=== PATIENT | male | born 1985 | race Caucasian/White ===

== ENCOUNTER 2018-05-15 16:12 | Emergency (ER) | payer BC ==
[2018-05-15 16:25] VITALS: BP 126/70
--- NOTE | 2018-05-15 17:18 | RAD ---
Indication: Right ankle injury. 3 views right ankle demonstrates no fracture or dislocation. No other bone or joint abnormality is identified. IMPRESSION: No fracture of the right ankle is noted.
--- NOTE | 2018-05-15 17:18 | RAD ---
Indication: Right knee pain. 4 views of the right knee demonstrates no fracture. Joint spaces all well-preserved. No fracture is identified. IMPRESSION: No fracture of the right knee is noted.
--- NOTE | 2018-05-15 17:56 | UC ---
Lower Extremity/Ankle HPI - HPI Summary HPI Summary: 33-year-old male comes to clinic today with a chief complaint of right leg injury. He slipped and fell on some steps and is right lower leg was folded back as he went down the stairs. This resulted in a hyper plantar flexion of the right ankle and a hyperflexion of the right knee and hip. His ankle is swollen and it is tender circumferentially. The right knee is also swollen and it feels unstable to ambulation. Patient has been able to ambulate if he keeps his leg completely straight but it does have pain with ambulation better with rest. Also has some pain in the proximal quadriceps area. This pain is less than the knee and ankle. Denies other injuries. - History of Current Complaint Chief Complaint: UCLowerExtremity Stated Complaint: KNEE AND ANKLE INJURY Time Seen by Provider: 05/15/18 17:55 Pain Intensity: 9 - Allergies/Home Medications Allergies/Adverse Reactions: Allergies Allergy/AdvReac Type Severity Reaction Status Date / Time levofloxacin [From Levaquin] Allergy Rash Verified 05/15/18 16:25 Home Medications: Home Medications NK [No Home Medications Reported] 05/15/18 [History Confirmed 05/15/18] PMH/Surg Hx/FS Hx/Imm Hx Previously Healthy: Yes - Surgical History Surgical History: None - Social History Alcohol Use: Weekly Substance Use Type: Marijuana Substance Use Comment - Amount & Last Used: weekly Smoking Status (MU): Never Smoked Tobacco Review of Systems Constitutional: Negative Skin: Negative Eyes: Negative ENT: Negative Respiratory: Negative Cardiovascular: Negative Gastrointestinal: Negative Motor: Negative Neurovascular: Negative Musculoskeletal: Other: - see hpi Neurological: Negative Psychological: Negative Is Patient Immunocompromised?: No All Other Systems Reviewed And Are Negative: Yes Physical Exam Triage Information Reviewed: Yes Appearance: Well-Appearing, Well-Nourished, Pain Distress - mild Vital Signs: Initial Vital Signs Temp 98.5 F 05/15/18 16:20 Pulse 81 05/15/18 16:20 Resp 18 05/15/18 16:20 BP 126/70 05/15/18 16:20 Pulse Ox 99 05/15/18 16:20 Vital Signs Reviewed: Yes Eye Exam: Normal Eyes: Positive: Conjunctiva Clear Neck exam: Normal Neck: Positive: Supple Respiratory: Positive: No respiratory distress Musculoskeletal: Positive: Other: - Right hip has good range of motion and full strength. Right knee has an effusion. There is no point tenderness on exam. However with the anterior drawer patient feels the knee moving out of place. The right ankle has circumferential swelling. The Achilles tendon is intact. Normal dorsalis pedis posterior tibial pulses. Capillary refill is normal sensation is normal. Neurological Exam: Normal Neurological: Positive: Alert, Muscle Tone Normal Psychological Exam: Normal Psychological: Positive: Normal Response To Family, Age Appropriate Behavior Skin Exam: Normal Lower Extremity Course/Dx - Course Course Of Treatment: Order Information: KNEE RIGHT 4+ VWS. Accession Number: [id number]. CPT: 83467. Indication: Right knee pain. 4 views of the right knee demonstrates no fracture. Joint spaces all well-preserved. No. fracture is identified. IMPRESSION: No fracture of the right knee is noted. . <Electronically signed by Roya Bee MD in OV> 05/15/181714. Order Information: ANKLE RIGHT 3+VWS. Accession Number: [id number]. CPT: 49428. Indication: Right ankle injury. 3 views right ankle demonstrates no fracture or dislocation. No other bone or joint. abnormality is identified. IMPRESSION: No fracture of the right ankle is noted. . < Electronically signed by Roya Bee MD in OV> 05/15/181714. I discussed the x -ray results with the patient. Because the right knee feels unstable to exam and with attempted ambulation I'm concerned about the possibility of internal derangement. Mike wrap and knee immobilizer was placed by nursing. For the right ankle sprain an Mike wrap and gel splint was placed by nursing. Neurovascularly intact after placement of the Mike wrap since splints. Crutches given in clinic. Plan is to follow up either with his primary care doctor or with orthopedics. - Differential Dx/Diagnosis Provider Diagnoses: RIGHT QUADRICEPS STRAIN. RIGHT KNEE INJURY WITH PROBABLE INTERNAL DERANGEMENT. RIGHT ANKLE SPRAIN Discharge - Sign-Out/Discharge Documenting (check all that apply): Patient Departure All imaging exams completed and their final reports reviewed: Yes - Discharge Plan Condition: Stable Disposition: HOME Patient Education Materials: Knee Sprain (ED), Swollen Knee Joint (ED), Knee Immobilizer (ED), Ankle Sprain (ED) Referrals: Itz Yu MD [Primary Care Provider] - Rocco Yo MD [Medical Doctor] - Additional Instructions: FOLLOW UP WITH ORTHOPEDICS. GET RECHECKED FOR ANY WORSENING OF YOUR CONDITION OR QUESTIONS OR CONCERNS. - Billing Disposition and Condition Condition: STABLE Disposition: Home
[2018-05-15] MEDS ORDERED: Ibuprofen TAB* 600 MG PO ONE (18:15)
== END 2018-05-15 18:50 | disposition home or self-care (01) ==
LOC: UCEAST 16:12
DX: S76.111A Strain of right quadriceps muscle, fascia and tendon, initial encounter (principal); S93.401A Sprain of unspecified ligament of right ankle, initial encounter; W10.9XXA Fall (on) (from) unspecified stairs and steps, initial encounter; Y92.9 Unspecified place or not applicable; Z88.1 Allergy status to other antibiotic agents
CPT/HCPCS: 99204; A9270-GY; G0463

== ENCOUNTER 2018-11-07 17:42 | Emergency (ER) | payer BC, OTHER ==
[2018-11-07 18:23] VITALS: BP 132/84
--- NOTE | 2018-11-07 18:27 | UC ---
Head Injury HPI - HPI Summary HPI Summary: 33 yo male presents with head injury. He tells me that about 1-2 hours [employer] [place] he was installing a metal fence with his girlfriend. A piece of the fence fell backward and hit him on the top of the head. He sustained a small laceration to his scalp. No LOC, but did feel dazed and a little off balance for a few minutes immediately following the impact - those symptoms have since resolved. His last tetanus was within the last 5 years. He denies headache, dizziness, vision changes, n/v. - History Of Current Complaint Chief Complaint: UCLaceration Stated Complaint: HEAD LACERATION Time Seen by Provider: 11/07/18 18:26 Hx Obtained From: Patient Onset/Duration: Sudden Onset Severity Currently: None Severity Initially: Moderate Pain Intensity: 0 Pain Scale Used: 0-10 Numeric - Allergies/Home Medications Allergies/Adverse Reactions: Allergies Allergy/AdvReac Type Severity Reaction Status Date / Time levofloxacin [From Levaquin] Allergy Rash Verified 09/17/18 17:59 Home Medications: Home Medications NK [No Home Medications Reported] 11/07/18 [History Confirmed 11/07/18] PMH/Surg Hx/FS Hx/Imm Hx - Additional Past Medical History Additional PMH: None - Surgical History Surgical History: None Surgery Procedure, Year, and Place: DENIES - Family History Known Family History: Positive: None - Pt denies FMHX, Non-Contributory - Social History Lives: With Family Alcohol Use: Weekly Substance Use Type: Marijuana Substance Use Comment - Amount & Last Used: weekly Smoking Status (MU): Never Smoked Tobacco - Immunization History Most Recent Tetanus Shot: 2017 Review of Systems All Other Systems Reviewed And Are Negative: Yes Constitutional: Positive: Negative Skin: Positive: Other - Scalp laceration Respiratory: Positive: Negative Cardiovascular: Positive: Negative Gastrointestinal: Positive: Negative Neurovascular: Positive: Negative Neurological: Positive: Negative Psychological: Positive: Negative Physical Exam - Summary Physical Exam Summary: GENERAL: NAD. WDWN. No pain distress. SKIN: Parietal scalp with horizontal 1.5cm linear laceration. Clean appearing. HEENT: Head: No raccoon eyes or battles sign. Eyes: PERRLA. EOM intact. Ears: Hearing grossly normal. TMs intact, no bulging, erythema, or edema. No hemotympanum NECK: Supple. Nontender. FROM NEURO: A&Ox3. 3 word recall, remote, recent memory, ability to follow 2-step directions, and attention intact. CN: II: Peripheral stone intact. Vision normal. III, IV, : EOMI. No nystagmus. PERRLA. V: Sensations intact and symmetric. Opens mouth and clenches teeth. VII: No facial asymmetry. Forehead wrinkles. Grins, shuts eyes, frowns, puffs cheeks. VIII: Hearing intact to finger rub. IX, X: Swallows and coughs. Uvula midline. XI: Shrugs shoulders. Turns head against resistance. XII: No tongue deviation [id number] are intact. Gait with normal base. Romberg: maintains balance, no pronator drift. Normal speech. No facial drooping. PSYCH: Age appropriate behavior. Triage Information Reviewed: Yes Vital Signs: Initial Vital Signs Temp 98.8 F 11/07/18 18:19 Pulse 71 11/07/18 18:19 Resp 18 11/07/18 18:19 BP 132/84 11/07/18 18:19 Pulse Ox 97 11/07/18 18:19 Vital Signs Reviewed: Yes Head Injury Course/Dx - Course Course Of Treatment: The procedure was explained to the pt and all questions were answered. A time out was performed, witnessed, and signed. The area was cleansed with NS. TWO mark were administered to bring the wound into approximation. Pt tolerated well. No CT at this time as pt is currently asymptomatic and neuro exam is WNL. - Differential Dx/Diagnosis Provider Diagnosis: Head injury, Scalp laceration Discharge - Sign-Out/Discharge Documenting (check all that apply): Patient Departure All imaging exams completed and their final reports reviewed: No Studies - Discharge Plan Condition: Stable Disposition: HOME Patient Education Materials: St[employer] (ED) Referrals: Itz Yu MD [Primary Care Provider] - Additional Instructions: If you develop a fever, vision changes, severe headache, vomiting, shortness of breath, chest pain, new or worsening symptoms - please call your PCP or go to the ED. Please return in 7-10 days to have your mark removed - Billing Disposition and Condition Condition: STABLE Disposition: Home - Attestation Statements Provider Attestation: Pt not examined by me. I was available for consult. Laceration Repair - Laceration Repair 1 Description: Linear Laceration Size After Repair: Length (cm) - 1.5 Modified For Repair: No Cleansing Completed Via Routine Prep: Yes Closure Material: [place] - #2
== END 2018-11-07 18:42 | disposition home or self-care (01) ==
LOC: UCEAST 17:42
DX: S09.90XA Unspecified injury of head, initial encounter (principal); S01.01XA Laceration without foreign body of scalp, initial encounter; W26.8XXA Contact with other sharp object(s), not elsewhere classified, initial encounter; Y92.096 Garden or yard of other non-institutional residence as the place of occurrence of the external cause; Z88.1 Allergy status to other antibiotic agents
CPT/HCPCS: 12001; 99201; G0463

== ENCOUNTER 2018-11-15 07:50 | Emergency (ER) | payer BC ==
[2018-11-15 07:59] VITALS: BP 135/74
--- NOTE | 2018-11-15 08:32 | UC ---
HPI Wound/Suture Re-check - HPI Summary HPI Summary: PATIENT SUSTAINED A LACERATION TO HIS SCALP ON 11/07/18. CAME HERE TO AND HAD 2 MARK PLACED. WOUND IS HEALING WELL. IS HERE FOR STAPLE REMOVAL. - History Of Current Complaint Chief Complaint: UCLaceration Stated Complaint: STAPLE REMOVAL Time Seen by Provider: 11/15/18 08:18 Hx Obtained From: Patient Severity: Mild Pain Intensity: 0 Pain Scale Used: 0-10 Numeric - Allergies/Home Medications Allergies/Adverse Reactions: Allergies Allergy/AdvReac Type Severity Reaction Status Date / Time levofloxacin [From Levaquin] Allergy Rash Verified 11/15/18 07:58 PMH/Surg Hx/FS Hx/Imm Hx Previously Healthy: Yes - Surgical History Surgical History: None Surgery Procedure, Year, and Place: DENIES - Family History Known Family History: Positive: Non-Contributory - Social History Alcohol Use: Weekly Substance Use Type: Marijuana Substance Use Comment - Amount & Last Used: weekly Smoking Status (MU): Never Smoked Tobacco - Immunization History Most Recent Tetanus Shot: 2017 Review of Systems All Other Systems Reviewed And Are Negative: Yes Constitutional: Positive: Negative Skin: Positive: Other - SCALP LACERATION WELL HEALED Respiratory: Positive: Negative Cardiovascular: Positive: Negative Gastrointestinal: Positive: Negative Physical Exam Triage Information Reviewed: Yes Appearance: Well-Appearing, No Pain Distress, Well-Nourished Vital Signs: Initial Vital Signs Temp 97.3 F 11/15/18 07:55 Pulse 56 11/15/18 07:55 Resp 18 11/15/18 07:55 BP 135/74 11/15/18 07:55 Pulse Ox 99 11/15/18 07:55 Vital Signs Reviewed: Yes Eyes: Positive: Conjunctiva Clear ENT: Positive: Hearing grossly normal Neck: Positive: Supple Respiratory: Positive: No respiratory distress, No accessory muscle use Cardiovascular: Positive: Pulses Normal Abdomen Description: Positive: Soft Musculoskeletal: Positive: No Edema Neurological: Positive: Alert Psychological: Positive: Age Appropriate Behavior Skin: Positive: Other - SCALP LACERATION C/D/I. SLIGHT CRUST SURROUNDING MARK. NO ERYTHEMA, TENDERNESS OR DRAINAGE Course/Dx - Course Course Of Treatment: 2 STAPLE REMOVED BY MD WITHOUT DIFFICULTY. - Diagnosis Provider Diagnosis: Removal of mark Discharge - Sign-Out/Discharge Documenting (check all that apply): Patient Departure All imaging exams completed and their final reports reviewed: No Studies - Discharge Plan Condition: Stable Disposition: HOME Referrals: Itz Yu MD [Primary Care Provider] - If Needed Additional Instructions: YOUR 2 MARK WERE REMOVED TODAY WITHOUT DIFFICULTY. THE CRUST WILL FLAKE OFF WITHIN A FEW DAYS. DO NOT PICK OR SCRATCH AT IT. SEEK FOLLOW-UP IF YOU DEVELOP SPREADING REDNESS OF THE SKIN, PURULENT DRAINAGE, FEVER, INCREASED PAIN OR ANY OTHER CONCERNING SYMPTOMS. - Billing Disposition and Condition Condition: STABLE Disposition: Home
== END 2018-11-15 08:32 | disposition home or self-care (01) ==
LOC: UCEAST 07:50
DX: S01.01XD Laceration without foreign body of scalp, subsequent encounter (principal); W45.8XXD Other foreign body or object entering through skin, subsequent encounter; Z88.1 Allergy status to other antibiotic agents

== ENCOUNTER 2019-01-10 22:02 | Observation (INO) | payer BC ==
--- NOTE | 2019-01-10 23:09 | ED ---
Neurological HPI - HPI Summary HPI Summary: At 19:30 this evening patient had a 90 sec episode of left sided weakness and difficulty with speech--symptoms have resolved all except numbness above left lip - History of Current Complaint Chief Complaint: EDNeurologicalDeficit Stated Complaint: "BELIEVE HAVING SOME KIND OF STOKE EVENT" PER PT Time Seen by Provider: 01/10/19 23:09 Last Known Well Date: 1927 Hx Obtained From: Patient Onset/Duration: Sudden Onset, Started hours ago - 4, Resolved Onset Severity: Moderate Current Severity: Mild Neurological Deficit Location: Facial Headache Location: Frontal Pain Intensity: 2 Pain Scale Used: 0-10 Numeric Character: Weak Associated Signs and Symptoms: Positive: Headache, Confusion, Numbness TPA Considered: No - Allergy/Home Medications Allergies/Adverse Reactions: Allergies Allergy/AdvReac Type Severity Reaction Status Date / Time levofloxacin [From Levaquin] Allergy Rash Verified 01/10/19 22:32 PMH/Surg Hx/FS Hx/Imm Hx Previously Healthy: Yes Endocrine/Hematology History: Denies: Hx Diabetes, Hx Thyroid Disease Cardiovascular History: Denies: Hx Hypertension, Hx Pacemaker/ICD Respiratory History: Denies: Hx Asthma, Hx Chronic Obstructive Pulmonary Disease (COPD) GI History: Denies: Hx Ulcer History: Denies: Hx Renal Disease Sensory History: Denies: Hx Hearing Aid Psychiatric History: Denies: Hx Panic Disorder - Surgical History Surgical History: None Surgery Procedure, Year, and Place: DENIES - Immunization History Hx Pertussis Vaccination: No Immunizations Up to Date: No Infectious Disease History: No Infectious Disease History: Denies: Hx Hepatitis, Hx Human Immunodeficiency Virus (HIV), Traveled Outside the [place] in Last 30 Days - Family History Known Family History: Positive: None - Social History Occupation: Employed Full-time Lives: With Family Alcohol Use: Weekly Hx Substance Use: Yes Substance Use Type: Reports: Marijuana Substance Use Comment - Amount & Last Used: daily Smoking Status (MU): Never Smoked Tobacco Review of Systems Constitutional: Negative Eyes: Negative ENT: Negative Cardiovascular: Negative Respiratory: Negative Gastrointestinal: Negative Genitourinary: Negative Musculoskeletal: Negative Skin: Negative Positive: Headache Psychological: Normal All Other Systems Reviewed And Are Negative: No Physical Exam Triage Information Reviewed: Yes Vital Signs On Initial Exam: Initial Vitals Temp Pulse Resp BP Pulse Ox 98.3 F 78 16 124/94 96 01/10/19 22:08 01/10/19 22:08 01/10/19 22:08 01/10/19 22:08 01/10/19 22:08 Vital Signs Reviewed: No Appearance: Positive: Well-Appearing, No Pain Distress, Well-Nourished Skin: Positive: Warm, Skin Color Reflects Adequate Perfusion, Dry Head/Face: Positive: Normal Head/Face Inspection, Other - numbness above left side of lip. Negative: TMJ Tenderness Eyes: Positive: Normal, EOMI, TRICIA, Conjunctiva Clear ENT: Positive: Normal ENT inspection, Hearing grossly normal, Pharynx normal, TMs normal, Uvula midline, Other - tongue midline-. Negative: Nasal congestion , Trismus, Muffled voice, Hoarse voice Neck: Positive: Supple, Nontender, No Lymphadenopathy, Other: - -bruits Respiratory/Lung Sounds: Positive: Clear to Auscultation, Breath Sounds Present Cardiovascular: Positive: Normal, RRR, Pulses are Symmetrical in both Upper and Lower Extremities Abdomen Description: Positive: Nontender, No Organomegaly, Soft. Negative: CVA Tenderness (R), CVA Tenderness (L) Bowel Sounds: Positive: Present Musculoskeletal: Positive: Normal, Strength/ROM Intact Neurological: Positive: Normal, Sensory/Motor Intact, Alert, Oriented to Person Place, Time, CN Intact II-III, Facial Symmetry, Speech Normal. Negative: Receptive Aphasia, Expressive Aphasia, Cerebellar Dysfunction, Disoriented, Facial Droop, Focal Deficit @, Slurred Speech, Dysphagia, Pronator Drift Present Psychiatric: Positive: Normal AVPU Assessment: Alert - Hubert Coma Scale Best Eye Response: 4 - Spontaneous Best Motor Response: 6 - Obeys Commands Best Verbal Response: 5 - Oriented Coma Scale Total: 15 Diagnostics - Vital Signs Vital Signs Temp Pulse Resp BP Pulse Ox 01/10/19 22:08 98.3 F 78 16 124/94 96 - Laboratory Result Diagrams: 01/10/19 23:36 01/10/19 23:36 Lab Statement: Any lab studies that have been ordered have been reviewed, and results considered in the medical decision making process. - Radiology No standard instances Radiology Interpretation Completed By: Radiologist - ct-brain no acute process identified - EKG No standard instances Cardiac Rate: NL EKG Rhythm: Sinus Rhythm ST Segment: Normal Ectopy: None EKG Comparison: No Significant Change NIH Scale - NIH Scale Level of Consciousness: Alert/Keenly Responsive Ask Patient the Month and His/Her Age: Both Correct Ask Pt to Open/Close Eyes and Monotype Machinist/Release Non-Paretic Hand: Both Correctly Best Gaze (Only Horizontal Eye Movement): Normal Visual Field Testing: No Visual Loss Facial Paresis-Pt to Smile & Close Eyes or Grimace Symmetry: Normal/Symmetrical Motor Function - Right Arm: No Drift-Holds 10 Seconds Motor Function - Left Arm: No Drift-Holds 10 Seconds Motor Function - Right Leg: No Drift-Holds 10 Seconds Motor Function - Left Leg: No Drift-Holds 10 Seconds Limb Ataxia-Must be out of Proportion to Weakness Present: Absent Sensory (Use Pinprick to Test Arms/Legs/Trunk/Face): Normal Best Language (Describe Picture, Name Items): No Aphasia Extinction and Inattention: No Abnormality Re-Evaluation - Re-Evaluation First Eval Change: Improved - reports sx are resolved---aspirin given----report to Dr. Pinedo Course/Dx - Course Assessment/Plan: plan to consult hospitalist for TIA evaluation---patient made aware of plan - Diagnoses Provider Diagnoses: TIA (transient ischemic attack) Discharge - Sign-Out/Discharge Documenting (check all that apply): Patient Departure Patient Received Moderate/Deep Sedation with Procedure: No - Discharge Plan Condition: Fair Disposition: ADMITTED TO [facility] - Billing Disposition and Condition Condition: FAIR Disposition: Admitted to [facility] - Attestation Statements Provider Attestation: the patient was seen by the midlevel provider, it was determined by them that it was not necessary for me to see the patient thus the patient was not presented to me, I was available for consult during the patient's visit in the ED. I did not establish and patient-physician relationship. The chart however has been reviewed and I am signing in an administrative capacity.
[2019-01-10 23:40] LABS: Urine Appearance Cloudy; Urine Bilirubin Negative (Negative); Urine Blood Negative (Negative); Urine Color Yellow; Urine Glucose Negative (Negative); Urine Ketones Negative (Negative); Urine Nitrite Negative (Negative); Urine Protein Negative (Negative); Urine Specific Gravity 1.021 (1.010-1.030); Urine Urobilinogen Negative (Negative)
[2019-01-10 23:45] LABS: ABS Eosinophils 0.1 10^3/ul (0-0.6); ABS Lymphocytes 1.4 10^3/ul (1.0-4.8); ABS Monocytes 0.4 10^3/ul (0-0.8); ABS Neutrophils 4.2 10^3/ul (1.5-7.7); Eosinophil % 0.9 %; Hematocrit 44 % (42-52); Hemoglobin 15.5 g/dL (14.0-18.0); Lymphocyte % 23.2 %; Mean Corpuscular HGB Conc 35 g/dL (31-36); Mean Corpuscular Hemoglobin 29 pg (27-31); Mean Corpuscular Volume 84 fL (80-94); Mean Platelet Volume 8.3 fL (7.4-10.4); Platelet Count 215 10^3/uL (150-450); Red Cell Distribution Width 13 % (10-15); White Blood Count 6.1 10^3/uL (3.5-10.8)
[2019-01-10 23:48] LABS: INR 0.98 (0.82-1.09)
[2019-01-11 00:02] LABS: ALT 17 U/L (7-52); AST 17 U/L (13-39); Albumin 4.6 g/dL (3.2-5.2); Albumin/Globulin Ratio 2.1 (1-3); Alkaline Phosphatase 65 U/L (34-104); Anion Gap 5 mmol/L (2-11); BUN/Creatinine Ratio 19.8 (8-20); Blood Urea Nitrogen 20 mg/dL (6-24); CO2 Carbon Dioxide 27 mmol/L (22-32); Calcium 9.3 mg/dL (8.6-10.3); Chloride 108 mmol/L (101-111); EGFR African American 104.3 (>60); EGFR Non-African American 86.2 (>60); Globulin 2.2 g/dL (2-4); Glucose 100 mg/dL (70-100); Potassium 4.1 mmol/L (3.5-5.0); Sodium 140 mmol/L (135-145); Total Protein 6.8 g/dL (6.4-8.9)
[2019-01-11 00:08] LABS: Urine Benzodiazepine Screen None Detected (None Detect); Urine Opiates Screen None Detected (None Detect)
[2019-01-11 00:14] LABS: Alcohol < 10 mg/dL (<10)
[2019-01-11] MEDS ORDERED: Aspirin 81 mg CHEW TAB* 81 MG TAB.CHEW PO ONE (00:24)
--- NOTE | 2019-01-11 01:44 | HP ---
History of Present Illness - History of Present Illness Reason for Visit: numbness History of Present Illness: PCP: Aimee Patient is a 33 year old man with no significant past medical history who was a passenger in a car this afternoon when he had sudden onset of numbness in his left perioral area, left periorbital area, and left arm and leg. He also describes an inability to speak for 60 seconds. He states he could not control his mouth, but he did not try to speak. He does not describe word-finding difficulty, but he did not make any utterance so he cannot describe dysarthria either. His was driving and she did not note anything wrong. He had no facial asymmetry or weakness. The numbness and speech difficulty resolved in about 60 seconds, except for some left upper lip numbness that persisted for 2- 3 hours. He has had no similar issues in the past. He had a headache develop about 2 hours after the incident, bifrontal, mild. He denies history of migraines. - Past Surgical History Past Surgical History: None - Past Family History Family History: Cancer - father of leiomyosarcoma, mother alive with breast cancer, brother and sister OK - Past Social History Smoke: No Occupation: [employer] Alcohol: Occassional - 0-1/day Drugs: Marijuana - daily Lives: With Family, Other - , no children Review of Systems - Measurements Intake and Output: Intake and Output Last 24 Hours 01/08/19 01/09/19 01/10/19 01/11/19 06:59 06:59 06:59 06:59 Weight 99.79 kg - Review of Systems Constitutional Symptoms: Negative: Weakness Dermatology: Positive: Normal HEENT: Positive: Normal Eyes: Positive: Normal Thyroid: Positive: Normal Pulmonary: Positive: Normal Cardiology: Positive: Normal Negative: Palpitations Gastroenterology: Positive: Normal Genital - Urinary: Positive: Normal Endocrinology: Positive: Normal Hematologic/Lymphatic: Negative: Anemia Neurology: Positive: Headache, Change in Speech, Numbness\Paresthesiae Negative: Migraines, Change in Vision, Diplopia, Change in Balancing, Unexplained Weakness, Hx of Stroke\TIA, Hx of Seizures Psychiatry: Positive: Normal Objective Active Medications: Home Medications: None Vital Signs - 8 hr 01/10/19 01/10/19 01/10/19 22:08 22:19 22:20 Temperature 36.8 C Pulse Rate 78 69 78 Respiratory 16 9 11 Rate Blood Pressure 124/94 148/90 (mmHg) O2 Sat by Pulse 96 98 98 Oximetry 01/11/19 01/11/19 01/11/19 00:49 01:00 01:24 Temperature 36.4 C Pulse Rate 56 53 60 Respiratory 13 18 16 Rate Blood Pressure 117/64 125/82 (mmHg) O2 Sat by Pulse 98 96 97 Oximetry Oxygen Devices in Use Now: None Appearance: alert, no distress Eyes: No Scleral Icterus Ears/Nose/Mouth/Throat: NL Teeth, Lips, Gums, Clear Oropharnyx Neck: NL Appearance and Movements; NL JVP, Trachea Midline Respiratory: Symmetrical Chest Expansion and Respiratory Effort, Clear to Auscultation Cardiovascular: NL Sounds; No Murmurs; No JVD, RRR Abdominal: NL Sounds; No Tenderness; No Distention, No Hepatosplenomegaly Lymphatic: No Cervical Adenopathy, No Axillary Adenopathy Extremities: No Edema Skin: No Rash or Ulcers Neurological: Alert and Oriented x 3, NL Sensation, NL Gait, NL Muscle Strength and Tone, - - CN II-XII intact Lines/Tubes/Other Access: Clean, Dry and Intact Peripheral IV Nutrition: Taking PO's Result Diagrams: 01/10/19 23:36 01/10/19 23:36 Additional Lab and Data: Laboratory Tests 01/10/19 01/10/19 01/10/19 23:30 23:36 23:36 INR (Anticoag Therapy) 0.98 Glucose 100 Lactic Acid AST 17 ALT 17 Troponin I 0.00 Total Protein 6.8 Urine Opiates Screen None detected Ur Amphetamines Screen None detected U Benzodiazepines Scrn None detected Urine Cocaine Screen None detected U Cannabinoids Screen Presumptive positive A Serum Alcohol < 10 01/10/19 23:36 INR (Anticoag Therapy) Glucose Lactic Acid 0.5 AST ALT Troponin I Total Protein Urine Opiates Screen Ur Amphetamines Screen U Benzodiazepines Scrn Urine Cocaine Screen U Cannabinoids Screen Serum Alcohol Diagnostic Imaging: Head CT: no infarct or bleed EKG Data: Normal sinus rhythm, normal axis, no ischemia Assess/Plan/Problems-Billing Assessment: 33 year old with transient LEFT-sided numbness, possible TIA vs migraine. - Patient Problems (1) TIA (transient ischemic attack) Current Visit: Yes Status: Acute Priority: High Code(s): G45.9 - TRANSIENT CEREBRAL ISCHEMIC ATTACK, UNSPECIFIED SNOMED Code(s): 975528219 Comment: -Differential includes TIA, migraine, seizure. -Will admit to observation, monitor on telemetry for arrhythmia -Will have MRI of brain and carotid doppler in AM. -Discussed case with Dr. Thompson, he will see patient for consultation. -Hyper-coaguable workup ordered, along with cholesterol. (2) DVT prophylaxis Current Visit: Yes Status: Acute Priority: Low Code(s): Z29.9 - ENCOUNTER FOR PROPHYLACTIC MEASURES, UNSPECIFIED SNOMED Code(s): 624203531 Comment: -Low risk, early ambulation Status and Disposition: observation
[2019-01-11 06:53] LABS: HDL Cholesterol 43.3 mg/dL
[2019-01-11 07:20] LABS: TSH (Thyroid Stimulating Horm) 1.7 mcIU/mL (0.34-5.60)
[2019-01-11] MEDS ORDERED: Aspirin EC TAB* 81 MG TAB.EC PO SCH (09:00)
[2019-01-11] MEDS ORDERED: Cyanocobalamin INJ * 1,000 MCG/ML VIAL 1 ML VIAL IM ONE (12:30)
[2019-01-11] MEDS ORDERED: Cyanocobalamin TAB* 500 MCG PO SCH (13:00)
[2019-01-11] MEDS ORDERED: Gadoteridol* (CONTRAST) 279.3 MG/ML 10 ML IV ONE (13:14)
--- NOTE | 2019-01-11 14:02 | CONS ---
NEUROLOGY CONSULTATION NOTE: DATE OF CONSULT: 01/11/19 DATE OF ADMISSION: 01/10/19 CONSULTING PROVIDER: Dr. Jarod Hong. REASON FOR CONSULT: Transient episode of loss of sensation on the left-side. CHIEF COMPLAINT: Inability to talk and loss of sensation of the left side that resolved. HISTORY OF PRESENT ILLNESS: Mr. Joe Gonzalez is a 33-year-old right- handed man, who has no past medical history except for marijuana use who was riding who was riding in the passenger seat next to his when suddenly he developed an episode of disorientation followed by lightheadedness followed by loss of sensation of the left side of the body, left face and perioral numbness , that was associated with inability to talk for about 1 minute. He has never had any similar episodes in the past. He flipped the visor to look at the mirror if he had any facial asymmetry and may have noticed some left-sided facial droop. He never had any neck pain, but does have some mild achiness for the last 3 to 4 days. Following the complaints he had headache once he got to the ED, the pain was dull. It was not the worst headache he has had ever experienced. It was not associated with any nausea or photophobia. He is completely asymptomatic today. Current NIH stroke scale is 0. PAST MEDICAL HISTORY: None. MEDICATIONS: None. ALLERGIES: LEVAQUIN. PAST FAMILY HISTORY: Father of leiomyosarcoma and his mother has a history of breast cancer. SOCIAL HISTORY: The patient denied any tobacco use, but does use marijuana daily. He manages a restaurant. He lives with his . He has no children. REVIEW OF SYSTEMS: A 14-point review of systems was obtained and otherwise negative, except for what was mentioned in the HPI. PHYSICAL EXAM: Vital Signs: Temperature of 97.4, heart rate of 50, respiratory rate of 16, oxygen saturation 100, blood pressure 112/62. General: Well- nourished, well-developed man in no acute distress. Head: Normocephalic, atraumatic without any obvious abnormality. Eyes: Conjunctivae/ corneas are clear. Neck is supple and symmetrical with no carotid bruit. No lymphadenopathy. Lungs are clear to auscultation bilaterally. Cardiovascular: Regular rate and rhythm with normal S1, S2. Extremities: Normal range of motion with no cyanosis. Skin: No skin lesions or lacerations. Psych: Affect is broad and normal mood. Easy to establish rapport. Neurological Examination : Mental Status: Awake, alert, and oriented to person, place, time, and general circumstance. Speech and language including expression, naming, repetition, and comprehension were assessed and found to be normal. Cranial Nerves: Normal to confrontation testing bilaterally. Pupils were midrange and reactive to light. Normal concentric response. Extraocular muscles are intact. No ptosis. No conjugate or asymmetrical nystagmus. Sensation is intact in the forehead, cheeks, and jaw regions bilaterally. No facial droop. There is facial symmetry. He is able to hear throughout the history process. Symmetrical palate elevation. Normal strength against shoulder resistance. Tongue is symmetric and midline with no atrophy or fasciculation. Motor Examination: No abnormal movements or pronator drift. Normal bulk and tone throughout. A 5/5 strength in the upper and lower extremities in the distal and proximal muscle compartments. Reflexes right/left: Brachioradialis 2/2, biceps 2/2, triceps 2/2, patella 2/2, ankle 2/2, and plantar flexor/flexor. Sensation is intact to light touch and pinprick throughout the upper and lower extremities. Normal vibration at the toes measuring 16 seconds on the right and 15 seconds on the left with normal proprioception. Coordination normal [id number] and heel to nicole testing. Gait and station narrow based. Normal stance and gait. No ataxia. DIAGNOSTIC STUDIES/LAB DATA: No other diagnostic testing. The patient had WBC of 6.1, hemoglobin of 15.4, hematocrit of 44, platelet count of 215. INR 0.98. Sodium of 140, potassium 4.1, chloride of 108, carbon dioxide 27, BUN 20, creatinine of 1.01, AST and ALT are normal. Vitamin B12 is 254, TSH of 1.70, LDL is 142. Urinalysis negative for pyuria. Urine toxicology screen is positive for cannabinoids. CT head without contrast was personally reviewed and completed on 01/10/19 and showed no evidence of intracranial abnormalities. MRI brain without contrast and MRA head without contrast showed no evidence of any areas of restricted diffusion. MRA showed no evidence of large vessel occlusion. The MRI of the head showed areas of periventricular white matter changes in the right lateral ventricle. There were no T1 holes. There is no area of intracranial hemorrhage. A consideration for a repeat MRI with contrast was recommended. ASSESSMENT AND RECOMMENDATIONS: Mr. Gonzalez is a 33-year-old healthy man who presented with sudden onset unexplained left hemianesthesia associated with inability to verbalize for 1 minute. He did have headache following this event. He has no history of migraine. The differential diagnosis here is possible transient ischemic attack involving the right middle cerebral artery distribution, focal sensory seizures, versus complex migraine. His ABCD2 score is 0. Therefore, it is unlikely that this was a manifestation of a vascular phenomenon. Therefore, we agree to not proceed with any antiplatelet or statin therapy. However, I do recommend obtaining an EEG to evaluate for epileptiform abnormalities. We will repeat an MRI with contrast to evaluate for any enhancing demyelinating disease, any enhancing demyelinating lesions either in the brain stem or in the right cerebral hemisphere. The combination of what was described as aphasia and left- sided symptoms do not really correlate with a vascular phenomenon in someone that is right handed. The patient will need close outpatient neurology followup. We will arrange follow up within the next 4 weeks. Neurology will continue to follow. Please continue neuro checks every 4 hours. Continue supportive care. 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 I will start him on vitamin B12 supplements starting with the first supplement as intramuscular and then continuing an oral dose of 1000 mcg of cyanocobalamin daily. [id number] #: [id number] MTDD
--- NOTE | 2019-01-11 14:19 | EEG ---
ELECTROENCEPHALOGRAPHY: DATE OF SERVICE: 01/11/19 DATE READ: 01/11/19 ORDERED BY: Jarod Hong MD INDICATION: Episode of numbness on the left side. This EEG was requested to evaluate for epileptiform abnormalities or electrographic seizures. MEDICATIONS: Aspirin. CLINICAL STATE: Awake and drowsy. REPORT: The waking background showed appropriate organization with clearly defined anterior-posterior voltage and frequency gradients. There was a well- defined posterior dominant rhythm of 10 Hz, which was symmetrical and showed normal reactivity. Anteriorly, there was an expected pattern of lower voltage, irregular, mixed faster frequencies. Attenuation to the occipital rhythm accompanied drowsiness. Hyperventilation and photic stimulation were not performed. Single electrode EKG showed a sinus bradycardia with a rate of 50 beats per minute. Throughout the recording, there were no epileptiform discharges. CLINICAL IMPRESSION: This is a normal awake and drowsy EEG. There were no epileptiform discharges or electrographic seizures. A normal interictal EEG does not exclude or support the diagnosis of epilepsy. Clinical correlation is recommended. [id number] #: [id number] [facility]
[2019-01-11 15:41] VITALS: BP 114/65
[2019-01-14 16:53] LABS: Prothrombin 20210 Mutation Negative (Negative)
[2019-01-15 12:53] LABS: LAC APTT 33 sec (26 - 36); Prothrombin Time(LAC) 10.4 sec
[2019-01-16 12:01] LABS: Methylmalonic Acid 0.11 nmol/mL (<=0.40)
== END 2019-01-11 17:37 | disposition left against medical advice (07) ==
LOC: ED 22:02 → MEDTELE 01-11 01:01
PROVIDERS: ADMIT Internal Medicine; ATTEND Internal Medicine
DX: G45.9 Transient cerebral ischemic attack, unspecified (principal); Z79.899 Other long term (current) drug therapy; Z88.1 Allergy status to other antibiotic agents
CPT/HCPCS: 36415; 70450; 70544; 70551; 70552; 80053; 80061; 80307; 80320; 81003; 81240; 82607; 83605; 83921; 84443; 84484; 85025; 85300; 85302; 85306; 85307; 85610; 85613; 85730; 86618; 93005; 93880; 95816; 96372; 99283; A9270-GY; A9579; G0378; G0480; J3420